=== PATIENT | female | born 1995 | race Caucasian/White ===

== ENCOUNTER 2016-07-23 01:58 | Emergency (ER) | payer OTHER | END 2016-07-23 03:32 | disposition left against medical advice (07) | LOC: ER1 01:58 | DX: Z53.21 Procedure and treatment not carried out due to patient leaving prior to being seen by health care provider (principal) ==

== ENCOUNTER 2020-03-15 14:00 | Emergency (ER) | payer OTHER | END 2020-03-15 15:20 | disposition home or self-care (01) | LOC: ER1 14:00 | DX: S67.02XA Crushing injury of left thumb, initial encounter (principal); S60.012A Contusion of left thumb without damage to nail, initial encounter; F17.200 Nicotine dependence, unspecified, uncomplicated; W23.0XXA Caught, crushed, jammed, or pinched between moving objects, initial encounter | CPT/HCPCS: 73130; 96372; 99283 ==

== ENCOUNTER 2020-04-02 12:24 | Emergency (ER) | payer OTHER ==
[2020-04-02] MEDS ORDERED: IBUPROFEN600 MG PO (13:55)
== END 2020-04-02 14:05 | disposition home or self-care (01) ==
LOC: ER1 12:24
DX: S93.601A Unspecified sprain of right foot, initial encounter (principal); F17.210 Nicotine dependence, cigarettes, uncomplicated; G40.909 Epilepsy, unspecified, not intractable, without status epilepticus; Z87.820 Personal history of traumatic brain injury; V86.95XA Unspecified occupant of 3- or 4- wheeled all-terrain vehicle (ATV) injured in nontraffic accident, initial encounter; Y92.830 Public park as the place of occurrence of the external cause
CPT/HCPCS: 73610; 73630; 99283

== ENCOUNTER → 2020-04-21 | Outpatient (CLI) | payer OTHER ==
[~2020-04-21] MED LIST: BENTYL 20MG TAB20 MG PO; COLACE 100MG C100 MG PO; IBUPROFEN600 MG PO; IBUPROFEN800 MG PO; MACRODANTIN100 MG PO; PYRIDIUM200 MG PO; ZOFRAN 4 MG TAB4 MG PO
== END ==
LOC: KOH-I 10:27
DX: M25.571 Pain in right ankle and joints of right foot (principal)
CPT/HCPCS: 73610; 73630

== ENCOUNTER 2020-05-03 17:17 | Emergency (ER) | payer OTHER ==
[~2020-05-03 17:17] MED LIST changes: -BENTYL 20MG TAB20 MG PO; -COLACE 100MG C100 MG PO; -IBUPROFEN800 MG PO; -MACRODANTIN100 MG PO; -PYRIDIUM200 MG PO; -ZOFRAN 4 MG TAB4 MG PO
[2020-05-03 19:25] LABS: RED BLOOD COUNT 3.97 M/UL (4.00-5.10); WHITE BLOOD COUNT 16.4 K/UL (4.5-11.0)
[2020-05-03 19:47] LABS: BUN/CREATININE RATIO 21 (0-10)
[2020-05-03] MEDS ORDERED: MACRODANTIN100 MG PO (21:10)
[2020-05-03] MEDS ORDERED: IBUPROFEN800 MG PO (21:10)
[2020-05-03] MEDS ORDERED: PYRIDIUM200 MG PO (21:10)
[2020-05-03] MEDS ORDERED: COLACE 100MG C100 MG PO (21:10)
[2020-05-03] MEDS ORDERED: BENTYL 20MG TAB20 MG PO (21:10)
[2020-05-03] MEDS ORDERED: ZOFRAN 4 MG TAB4 MG PO (21:10)
== END 2020-05-03 23:45 | disposition home or self-care (01) ==
LOC: ER1 17:17
PROVIDERS: Emergency Medicine
DX: N39.0 Urinary tract infection, site not specified (principal); K59.00 Constipation, unspecified; F17.210 Nicotine dependence, cigarettes, uncomplicated
CPT/HCPCS: 71045; 80053; 81001; 84703; 85025; 96374; 96375; 99284; J1885; J2270

== ENCOUNTER → 2020-05-03 | Outpatient (CLI) | payer OTHER | LOC: KOH-I 11:31 | DX: M84.371A Stress fracture, right ankle, initial encounter for fracture (principal); R93.7 Abnormal findings on diagnostic imaging of other parts of musculoskeletal system; X58.XXXA Exposure to other specified factors, initial encounter | CPT/HCPCS: 73610; 73630 ==

== ENCOUNTER 2020-06-02 17:35 | Emergency (ER) | payer OTHER ==
[~2020-06-02 17:35] MED LIST changes: +BENTYL 20MG TAB20 MG PO; +COLACE 100MG C100 MG PO; +IBUPROFEN800 MG PO; +MACRODANTIN100 MG PO; +PYRIDIUM200 MG PO; +ZOFRAN 4 MG TAB4 MG PO
[2020-06-02 18:23] LABS: HEMOGLOBIN 12.7 gm/dl (12.3-15.3); RED BLOOD COUNT 4.25 M/UL (4.00-5.10)
[2020-06-02 18:40] LABS: BUN/CREATININE RATIO 18 (0-10)
== END 2020-06-02 20:20 | disposition home or self-care (01) ==
LOC: ER1 17:35
PROVIDERS: Preventive Medicine Occupational Medicine
DX: S16.1XXA Strain of muscle, fascia and tendon at neck level, initial encounter (principal); V49.40XA Driver injured in collision with unspecified motor vehicles in traffic accident, initial encounter; F17.210 Nicotine dependence, cigarettes, uncomplicated; Y92.410 Unspecified street and highway as the place of occurrence of the external cause
CPT/HCPCS: 70450; 71045; 72070; 72125; 72131; 72170; 80053; 85025; 99284

== ENCOUNTER 2020-12-29 18:36 | Emergency (ER) | payer OTHER ==
[2020-12-29 20:01] LABS: HEMOGLOBIN 12.8 gm/dl (12.3-15.3); RED BLOOD COUNT 4.18 M/UL (4.00-5.10); WHITE BLOOD COUNT 11.9 K/UL (4.5-11.0)
[2020-12-29 20:30] LABS: BUN/CREATININE RATIO 19 (0-10)
[2020-12-29] MEDS ORDERED: CEPHALEXIN500 MG PO (20:39)
[2020-12-29] MEDS ORDERED: HYDROCODON-ACE1 EAC4 PO (20:50)
== END 2020-12-29 21:10 | disposition home or self-care (01) ==
LOC: ER1 18:36
PROVIDERS: Preventive Medicine Occupational Medicine
DX: S51.012A Laceration without foreign body of left elbow, initial encounter (principal); F17.210 Nicotine dependence, cigarettes, uncomplicated; W13.2XXA Fall from, out of or through roof, initial encounter
CPT/HCPCS: 12002; 73070; 80048; 85025; 96374; 96375; 99283; J0690; J1170; J2405